=== PATIENT | male | born 1985 | race Caucasian/White ===

== ENCOUNTER 2018-11-18 09:50 | Emergency (ER) | payer SELFPAY ==
[~2018-11-18] VITALS: Ht 195.6 cm; Wt 133.9 kg
--- NOTE | 2018-11-18 13:09 | EKG ---
[facility] [address] [facility] [place], [place] [address] Signed Normal sinus rhythm with sinus arrhythmia Nonspecific intraventricular conduction delay Borderline ECG No previous ECGs available Confirmed by SAHIL PADILLA MD ([id number]) on 11/18/2018 1:08:53 PM Electronically Signed By: SAHIL PADILLA MD 11/18/18 1309 PATIENT NAME: JEM DACOSTA Electrocardiogram DATE OF : 87 PHYSICIAN: SAHIL PADILLA MD REPORT #: [id number] REPORT IS CONFIDENTIAL AND NOT TO BE RELEASED WITHOUT AUTHORIZATION
== END 2018-11-18 12:09 | disposition home or self-care (01) ==
LOC: ED 09:50
DX: R07.9 Chest pain, unspecified (principal); Z87.891 Personal history of nicotine dependence
CPT/HCPCS: 71045; 80053; 84484; 85025; 93005; 93010; 99285-25

== ENCOUNTER 2020-01-14 14:20 | Emergency (ER) | payer OTHER ==
[~2020-01-14] VITALS: Ht 195.6 cm; Wt 133.8 kg
[2020-01-14] MEDS ORDERED: OMEPRAZOLE20 MG PO (14:34)
== END 2020-01-14 16:42 | disposition home or self-care (01) ==
LOC: ED 14:20
DX: S86.911A Strain of unspecified muscle(s) and tendon(s) at lower leg level, right leg, initial encounter (principal); F17.200 Nicotine dependence, unspecified, uncomplicated; V43.92XA Unspecified car occupant injured in collision with other type car in traffic accident, initial encounter
CPT/HCPCS: 73560; 99284-25

== ENCOUNTER 2020-04-04 14:09 | Emergency (ER) | payer OTHER ==
[~2020-04-04] VITALS: Ht 195.6 cm; Wt 133.9 kg
[~2020-04-04 14:09] MED LIST: OMEPRAZOLE20 MG PO
[2020-04-04] MEDS ORDERED: PAIN MEDICATION (14:31)
[2020-04-04] MEDS ORDERED: OMEPRAZOLE20 MG PO (14:31)
--- NOTE | 2020-04-04 15:00 | EKG ---
[facility] [address] [facility] [place], [place] [address] Signed Normal sinus rhythm Normal ECG When compared with ECG of 28-MAY-2019 19:38, No significant change was found Confirmed by UMESH BAILON DO ([id number]) on 04/04/2020 2:59:45 PM Electronically Signed By: UMESH BAILON DO 04/04/20 1500 PATIENT NAME: JEM DACOSTA ANNEL Electrocardiogram DATE OF : 87 PHYSICIAN: UMESH BAILON DO REPORT #: [id number] REPORT IS CONFIDENTIAL AND NOT TO BE RELEASED WITHOUT AUTHORIZATION
== END 2020-04-04 16:45 | disposition home or self-care (01) ==
LOC: ED 14:09
DX: R07.89 Other chest pain (principal); F17.200 Nicotine dependence, unspecified, uncomplicated
CPT/HCPCS: 71045; 93005; 93010; 99285-25

== ENCOUNTER 2021-11-02 08:16 | Emergency (ER) | payer OTHER ==
[~2021-11-02] VITALS: Ht 195.6 cm; Wt 140.6 kg
[~2021-11-02 08:16] MED LIST changes: +PAIN MEDICATION
[2021-11-02] MEDS ORDERED: FLUOXETINE HCL40 MG PO (08:26)
== END 2021-11-02 08:46 | disposition home or self-care (01) ==
LOC: ED 08:16
DX: R22.0 Localized swelling, mass and lump, head (principal)
CPT/HCPCS: 99283